=== PATIENT | male | born 1955 | race Caucasian/White ===

== ENCOUNTER → 2016-06-25 | Outpatient (CLI) | payer MEDICARE, OTHER ==
[2015-04-08 19:15] VITALS: BP 70/44
[~2016-06-25] MED LIST: ALBU2.5V14 NEB; ALPR1TAB6 PO; ARIP20TA5 PO; BACL10TA PO; DUONEB IH; IBUP200T58 PO; INSU100I17 SQ; INSU100I27 SQ; IPRA0.2S5 IH; LEVO500T59 PO; MORP20CA17 PO; MORP20CA18 PO; NYSTATIN; Nicotine TD; OXYC10TA PO; OXYC20TA34 PO; PRED-220 PO; PRED5TAB PO; SOFO400T PO; TAMS0.4C97 PO; TIOT18CA IH; TIOT4MIS5 IH; [UNRECOGNIZED DRUG - CODE] PO
--- NOTE | 2016-06-25 09:05 | RAD ---
Exam performed: Complete abdominal ultrasound. History: Hepatic cirrhosis hepatitis C. Date of service: 06/25/16. Comparison: Complete abdominal ultrasound from 09/08/14. Technique: Real-time grayscale imaging of the complete abdomen is performed and images are obtained. Findings: The liver demonstrates nodular contour consistent with previously known hepatic cirrhosis. It measures 18.9 cm in length. There is a 3.8 x 4.3 x 3.7 cm solid heterogeneously echogenic mass in the right hepatic lobe. There is also a 5 mm area of calcification in the left hepatic lobe. Splenomegaly. The spleen measures 13.1 cm in length. Punctate calcifications within the spleen are probably related to remote] infection. Bilateral kidneys are normal. Right kidney measures 11.6 x 5.8 x 5.7 cm left kidney measures 11.4 x 5.7 x 5.4 cm. Pancreas is poorly visualized due to overlying bowel gas. Segmental evaluation of the aorta and IVC appears normal. No free fluid. Impression: 1. Irregular hepatic contours consistent with hepatic cirrhosis. 2. New heterogeneously echogenic mass measuring 3.8 x 4.3 x 3.7 cm in the right hepatic lobe. Further evaluation with triple phase contrast-enhanced CT or MRI may be of additional benefit. 3. Mild splenomegaly
== END | disposition home or self-care (01) ==
LOC: US 07:56
PROVIDERS: ATTEND Internal Medicine Gastroenterology
DX: K74.60 Unspecified cirrhosis of liver (principal); B19.20 Unspecified viral hepatitis C without hepatic coma; R74.8 Abnormal levels of other serum enzymes; R16.1 Splenomegaly, not elsewhere classified
CPT/HCPCS: 76700

== ENCOUNTER → 2016-12-31 | Outpatient (CLI) | payer MEDICARE, OTHER ==
[2015-04-08 19:15] VITALS: BP 70/44
== END | disposition home or self-care (01) ==
LOC: SURG 11:27
PROVIDERS: ATTEND Anesthesiology
DX: M54.5 Low back pain (principal); C22.9 Malignant neoplasm of liver, not specified as primary or secondary; B19.20 Unspecified viral hepatitis C without hepatic coma; J44.9 Chronic obstructive pulmonary disease, unspecified; F20.9 Schizophrenia, unspecified; E11.9 Type 2 diabetes mellitus without complications; F17.200 Nicotine dependence, unspecified, uncomplicated
CPT/HCPCS: 99204

== ENCOUNTER 2017-09-01 16:53 | Inpatient (IN) | payer MEDICARE, OTHER ==
[~2017-09-01] VITALS: Ht 167.6 cm; Wt 69.0 kg
[2017-09-01] MEDS ORDERED: DEXTROSE 50% 25 GM / 50ML DISP.SYRIN. IV PRN (17:45)
[2017-09-01 17:50] VITALS: BP 113/74
[2017-09-01] MEDS ORDERED: RIFA550T4 PO (18:45)
[2017-09-01] MEDS ORDERED: SORA200T PO (18:45)
--- NOTE | 2017-09-01 19:09 | RAD ---
Indication: TIA/CVA TECHNIQUE: CT head without IV contrast COMPARISON: None FINDINGS: No pathologic extra-axial or intra-axial fluid collection. The ventricles and basal cisterns are within normal limits. No acute intracranial bleed. No focal loss of chen-white differentiation. Visualized orbits within normal limits. No acute calvarial fractures. Visualized paranasal sinuses and mastoid air cells are clear. IMPRESSION: No acute intracranial process. If concern for acute ischemic stroke is high, please consider MRI brain. Electronically signed by: Nash Olmos DO (09/01/2017 7:05 PM) [facility]
[2017-09-01 19:24] VITALS: BP 120/80
[2017-09-01] MEDS: IPRATRPIUM/ALBUTEROL 0.5/2.5MG 3 ML NEBU. NEB SCH (20:51)
[2017-09-01 21:01] LABS: BASO # 0.1 x10^3/uL (0.0-0.2); BASO % 1 % (0-3); EOS # 0.1 x10^3/uL (0.0-0.7); EOS % 2 % (0-3); HEMATOCRIT 46.2 % (39.0-53.0); HEMOGLOBIN 15.5 g/dL (13.0-17.5); LYMPH # 0.7 x10^3/uL (1.0-4.8); LYMPH % 16 % (24-48); MEAN CORPUSCULAR HEMOGLOBIN 31 pg (25-35); MEAN CORPUSCULAR HGB CONC 34 g/dL (31-37); MEAN CORPUSCULAR VOLUME 92 fL (79-100); MONO # 0.5 x10^3/uL (0.0-1.1); MONO % 11 % (0-9); NEUT # 3.1 x10^3uL (1.8-7.7); NEUT % 70 % (31-73); PLATELET COUNT 124 x10^3/uL (140-400); RED BLOOD COUNT 5.02 x10^6/uL (4.30-5.70); WHITE BLOOD COUNT 4.4 x10^3/uL (4.0-11.0)
--- NOTE | 2017-09-01 21:10 | EKG ---
[address] [address] Test Date: 2017-09-01 Test Time: 21:06:05 Pat Name: SHENA BARBOSA Department: Room: 107 A Gender: M Knowledge Manager: : 1955 Requested By: SARIKA GODOY Order Number: [id number] Reading MD: Measurements Intervals [place] Rate: 85 P: -46 DE: 112 QRS: 62 QRSD: 92 T: 22 QT: 364 QTc: 439 Interpretive Statements SINUS RHYTHM ATRIAL PREMATURE COMPLEX(ES) LEFT ATRIAL ABNORMALITY ABNORMAL ECG RI6.01 Compared to ECG 04/08/2015 18:04:04 Sinus tachycardia no longer present Right-axis deviation no longer present Right ventricular hypertrophy no longer present Early repolarization no longer present ST (T wave) deviation no longer present
[2017-09-01 21:22] LABS: ALBUMIN 2.1 g/dL (3.4-5.0); ALBUMIN/GLOBULIN RATIO 0.4 (1.0-1.7); CALCIUM 8.3 mg/dL (8.5-10.1); CREATININE 0.7 mg/dL (0.7-1.3); GFR 114.3; POTASSIUM 3.7 mmol/L (3.5-5.1)
[2017-09-01] MEDS: LACTOBACILLUS RHAMNOSUS GG 1 CAPSULE. PO SCH (21:47)
[2017-09-01] MEDS ORDERED: ALPRAZolam 0.5 MG TABLET PO PRN (22:30)
[2017-09-01 23:02] VITALS: BP 108/74
[2017-09-02] MEDS: IPRATRPIUM/ALBUTEROL 0.5/2.5MG 3 ML NEBU. NEB SCH ×5 (01:00→20:31)
[2017-09-02] MEDS: oxyCODONE IR 5 MG TABLET PO PRN ×5 (01:01→22:15)
[2017-09-02 01:04] VITALS: BP 113/77
[2017-09-02 02:02] LABS: BACTERIA,URINE 0 /HPF (0-FEW); BILIRUBIN,URINE NEG (NEG); CLARITY,URINE CLEAR; COLOR,URINE YELLOW; GLUCOSE,URINE NEG (NEG); NITRITE,URINE NEG (NEG); RBC,URINE 0 /HPF (0-2); UROBILINOGEN,URINE 0.2 mg/dL (0.2 mg/dL); WBC,URINE RARE /HPF (0-4)
[2017-09-02 05:04] VITALS: BP 110/69
[2017-09-02 06:19] LABS: BASO # 0.1 x10^3/uL (0.0-0.2); BASO % 1 % (0-3); EOS # 0.1 x10^3/uL (0.0-0.7); EOS % 1 % (0-3); HEMATOCRIT 47.2 % (39.0-53.0); HEMOGLOBIN 16.1 g/dL (13.0-17.5); LYMPH # 0.7 x10^3/uL (1.0-4.8); LYMPH % 15 % (24-48); MEAN CORPUSCULAR HEMOGLOBIN 32 pg (25-35); MEAN CORPUSCULAR HGB CONC 34 g/dL (31-37); MEAN CORPUSCULAR VOLUME 92 fL (79-100); MONO # 0.5 x10^3/uL (0.0-1.1); MONO % 11 % (0-9); NEUT # 3.4 x10^3uL (1.8-7.7); NEUT % 72 % (31-73); PLATELET COUNT 138 x10^3/uL (140-400); RED BLOOD COUNT 5.12 x10^6/uL (4.30-5.70); RED CELL DISTRIBUTION WIDTH 16.3 % (11.5-14.5); WHITE BLOOD COUNT 4.7 x10^3/uL (4.0-11.0)
[2017-09-02 06:29] LABS: CALCIUM 8.6 mg/dL (8.5-10.1); CREATININE 0.8 mg/dL (0.7-1.3); POTASSIUM 3.8 mmol/L (3.5-5.1)
[2017-09-02] MEDS: INSULIN LISPRO 300 UNITS/3 ML INSULN.PEN. SQ SCH ×3 (08:00→18:03)
--- NOTE | 2017-09-02 08:06 | RAD ---
INDICATION: Cough and congestion. TECHNIQUE: Two-view chest radiograph was obtained. Comparison is from April 08, 2015. FINDINGS: There is interstitial prominence with a basilar predominance, likely chronic, similar to the 2016 examination. There is no pleural effusion. There is no definite superimposed acute airspace disease. There is no pleural effusion. The heart is not enlarged and there is no definite heart failure. There are clips in the right upper quadrant. There are minimal degenerative changes in the spine. IMPRESSION: Interstitial prominence, likely chronic. No superimposed acute airspace disease is apparent. Electronically signed by: Geoff Pack MD (09/02/2017 8:03 AM) [facility]
[2017-09-02] MEDS: rifAXIMin 550 MG TABLET PO SCH ×2 (08:56→20:51)
[2017-09-02] MEDS: methylPREDNISolone SOD SUCC PF 125 MG/2 ML VIAL. IV SCH (08:56)
[2017-09-02] MEDS: ARIPiprazole 10 MG TABLET PO SCH (08:56)
[2017-09-02] MEDS: LACTOBACILLUS RHAMNOSUS GG 1 CAPSULE. PO SCH (08:56)
[2017-09-02] MEDS ORDERED: DUONEB IH SCH (09:00)
[2017-09-02] MEDS ORDERED: IOHEXOL 300 MG/ML 75 ML VIAL. IV ONE (09:45)
[2017-09-02 10:01] VITALS: BP 111/74
--- NOTE | 2017-09-02 11:11 | CONS ---
DATE OF CONSULTATION: 09/01/2017 NEUROLOGIC CONSULTATION REFERRING PHYSICIAN: Manish Page MD REASON FOR CONSULTATION: Weakness of the left arm and hand. HISTORY OF PRESENT ILLNESS: This is a 61-year-old right-handed male who was admitted today on account of a sudden onset of weakness and numbness of the left upper extremity. The patient stated he has been doing fine until this morning when he woke up and he could not extend his left wrist and fingers. He also complains of intermittent numbness and paresthesia of both upper extremities, more prominent on the right side. The patient denies any recent fall or neck injuries. He complains of neck pain radiating to the right shoulder plate. The patient has had a long history of liver cancer diagnosed a year ago. He has been treated at [facility] and has been on Nexavar and other chemotherapies. He has had a procedure of embolization to the liver vascular. The patient stated he had metastasize of the liver cancer to the cervical spine, mainly vertebral body 6 and 7, for which he received radiation 2 months ago. He continues to complain of pain of the cervical spine. The patient denies headaches, visual disturbances, nausea, vomiting, chest pain, abdominal pain, bowel movement changes. He has had a history of pulmonary hypertension, COPD associated with shortness of breath requiring oxygen supplements. 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 SOCIAL HISTORY: The patient is . He is a smoker. He denies alcohol drinking or illicit drug use. CURRENT MEDICATIONS: Includes Nexavar 200 mg p.o. daily, Abilify 20 mg daily, rifaximin 550 mg b.i.d., Humalog insulin on sliding scales t.i.d., oxycodone 10 mg q. 6 hours p.r.n. for pain, Xanax 0.5 mg b.i.d. p.r.n. for anxiety, Albuterol inhaler and nebulizer p.r.n. ALLERGIES: HALOPERIDOL. REVIEW OF SYSTEMS: A 10-point review of system was performed as mentioned above in history of present illness. PHYSICAL EXAMINATION: GENERAL: Well-developed, well-nourished male, not in acute distress. He weighs 152 pounds. VITAL SIGNS: Blood pressure 113/77, respiratory rate 20, pulse is 83, temperature is 97.9, oxygen saturation is 94% on 4 liters by nasal cannula. HEENT: Normocephalic, atraumatic, otherwise unremarkable. NECK: Supple. Negative for carotid bruit, lymphadenopathy. or thyromegaly. LUNGS: Diminished breath sounds. No wheezing. CARDIOVASCULAR: Regular rhythm, normal S1, S2, and sometimes with extra beats. ABDOMEN: Soft. Bowel sounds positive. EXTREMITIES: Negative for cyanosis, clubbing, or pitting edema. NEUROLOGIC: Mental status: The patient is alert and oriented x 3. Speech is fluent. There is no language dysfunction. Memory, judgment, and abstract thinking are normal. The patient denies hallucination or delusion. CRANIAL NERVES: Visual fermin are full. The pupils are reactive to light and accommodation. The extraocular movements are intact. There is no nystagmus. There is no facial motor or sensory deficit. Hearing is intact bilaterally. The palate is elevated symmetrically. Sternocleidomastoid muscles are powerful bilaterally. The patient shrugs his shoulders symmetrically, protrudes his tongue in the midline without fasciculation or atrophy. Motor examination: No focal muscle bulk was seen. The tone is normal. The strength is 4/5 in the left wrist extensor muscles and left forearm extensors. on the right side. The strength was 5/5 throughout. Sensory examination revealed normal pinprick, light touch, vibratory and position senses. Deep tendon reflexes were symmetric and hypoactive with absent Achilles responses. Gait: The patient has a steady stance. The patient walks without assistance. IMPRESSION: 1. Acute onset of left wrist drop probably secondary to left radial entrapment neuropathy versus lower cervical radiculopathy. Left brachial plexopathy is a remote possibility. 2. History of liver cancer with bone metastasis to the cervical spine. 3. Multiple medical problems include diabetes mellitus, chronic obstructive pulmonary disease, recent pneumonia, angina, renal disease and chronic low back pain. 4. Multiple psychiatric problems include schizophrenia, depressions, and anxiety. RECOMMENDATIONS: 1. Conservative management with physical therapy and apply a woody board to the left wrist. 2. Start the patient on steroids, Solu-Medrol. 3. We will arrange for EMG/NCS of the upper extremities to rule out entrapment neuropathy versus cervical radiculopathy, underlying metastasis to the cervical spine should be ruled out. 4. The patient should avoid leaning the left elbow against the hard surfaces. 5. Continue with current management initiated by Dr. Page. M Mariann TEJADA MD DR: MEG/vishal JOB#: [id number] / [id number]
--- NOTE | 2017-09-02 12:04 | RAD ---
Indication: Upper extremity radiculopathy. Pain and numbness in fingers. No known injury. Right shoulder pain. Technique: Axial images and coronal and sagittal reformatted images are provided. No comparison is available. One or more of the following individualized dose reduction techniques were utilized for this examination: 1. Automated exposure control 2. Adjustment of the mA and/or kV according to patient size 3. Use of iterative reconstruction technique Findings: There is an expansile mass involving the right pedicle, lateral mass, and transverse process of C7. This measures 3.4 cm transverse by 2.6 cm AP by 2.4 cm craniocaudal. It results in foraminal narrowing both at C6-C7 and C7-T1, moderate to severe at C6-C7 and mild at C7-T1. Additional osseous lesion is not apparent. There is no pathologic fracture. There is no fracture elsewhere within the cervical spine. There is slight retrolisthesis at C3-C4. There is otherwise no malalignment. There is mild endplate spurring most notable at C6-C7. Uncinate process spurring is also greatest at this level. Narrowing of the interspace is greatest at this level. Prevertebral soft tissues are within normal limits. Craniovertebral junction is unremarkable. There is severe emphysema in the lung apices. Rosa, nurse for Dr. Jacobs, was notified of results and recommendation of MRI at 1158 hours. IMPRESSION: 1. Expansile lytic mass involving the right pedicle, transverse process, and lateral mass of C7. Metastatic disease and myeloma would be the primary considerations. Recommend MRI with and without contrast. 2. Mass results in right foraminal narrowing at C6-C7 and C7-T1. 3. Mild degenerative changes are greatest at C6-C7. Electronically signed by: Geoff Pack MD (09/02/2017 12:00 PM) [facility]
[2017-09-02] MEDS: HEPARIN PF for SUB-Q USE 5,000 UNIT/0.5 ML VIAL. SQ SCH ×2 (13:16→20:52)
[2017-09-02] MEDS: NEXAVAR 200 MG PO SCH (13:57)
[2017-09-02 14:30] VITALS: BP 119/74
--- NOTE | 2017-09-02 15:28 | RAD ---
Indication: Recent pneumonia. Difficulty breathing. COPD. Lifetime smoker. On home O2. Technique: Axial images and coronal and sagittal maximum intensity projection reformatted images are provided. 75 mL of intravenous Omnipaque 300 was administered without complication. Comparison is from August 01, 2015. One or more of the following individualized dose reduction techniques were utilized for this examination: 1. Automated exposure control 2. Adjustment of the mA and/or kV according to patient size 3. Use of iterative reconstruction technique Findings: Cervical spine osseous mass was described on the CT cervical spine report. No osseous lesion in the chest is apparent. The contrast bolus is satisfactory. There is no filling defect to suggest pulmonary embolism. Right main pulmonary artery measures 2.8 cm in diameter. There is no aortic aneurysm or dissection, there is minimal atheromatous disease in the thoracic aorta. The heart is not enlarged. Coronary artery calcifications are noted. Calcified mediastinal lymph nodes are noted. There are also enlarged lymph nodes. There is a precarinal lymph node measuring 24 x 13 mm. Lymph node between the left common carotid artery and left subclavian artery measures 14 x 10 mm. AP window lymph node or grouping of nodes measures 2.5 x 1.0 cm. Enlarged right hilar lymph node measures 2.6 x 1.8 cm. Majority of these nodes are stable compared to 2016, the small node between the left common carotid artery and subclavian artery may be minimally increased, evaluation on prior study limited by streak artifact. Central airways are patent. There is no pleural effusion. There is severe emphysema with bullous upper lobe predominance. There is no consolidation. There again is a questionable nodule in the right upper lobe on image 24 measuring 6 mm, stable. Vague nodular area of scarring in the left lower lobe centered on image 77 is stable. There is granulomatous disease. There is fatty infiltration of the liver. There is a hepatic mass measuring 4.2 x 3.4 cm and the right hepatic lobe, not a simple cyst. This is probably increased in size from the June 25, 2016 ultrasound. Subcentimeter probable right renal cysts are noted. There is no adrenal mass. There are mild degenerative changes in the spine. IMPRESSION: 1. Negative for pulmonary embolus. Findings of pulmonary to real hypertension. 2. Severe emphysema. 3. Prominent mediastinal and right hilar lymph nodes, majority are stable, one of the smaller nodes may be increased. 4. Mass in the right hepatic lobe was present on a previous ultrasound, although is increased in size. Consider multiphase CT or MRI, if not previously performed. This was recommended on prior ultrasound as well. Electronically signed by: Geoff Pack MD (09/02/2017 3:24 PM) [facility]
[2017-09-02 18:57] VITALS: BP 150/84
--- NOTE | 2017-09-02 20:54 | PN ---
DATE: SUBJECTIVE: A 61-year-old gentleman came in very weak, tired. The patient notes that he may have some type of a tumor in his cervical spine, expansile lytic mass involving the right pedicle, transverse process and probable metastatic disease, possible myeloma. Dr. Maurer, neurologist, is helping this as well with the explanation of this. PHYSICAL EXAMINATION: VITAL SIGNS: Blood pressure 120/70, respiratory rate 20, pulse 80, afebrile. GENERAL: The patient is alert and oriented, still has pain down his left arm. NEUROLOGIC: The patient is alert and oriented x 3. Speech fluent, spontaneous, appropriate. LUNGS: Diminished, but clear. CARDIOVASCULAR: Stable. LABORATORY DATA: Basically unremarkable. IMPRESSION: Cervical tumor mass, history of polycythemia vera, generalized weakness. PLAN: As above. Continue to monitor the patient and we will review with Dr. Maurer, next step. Also looks like he has a tumor in his liver as well. Type 2 diabetes. SARIKA GODOY MD DR: JOCELIN/vishal JOB#: [id number] / [id number]
[2017-09-02 22:27] VITALS: BP 110/69
--- NOTE | 2017-09-02 23:46 | RAD ---
Indication:Elevated liver function tests TECHNIQUE: Grayscale, color Doppler and spectral waveform is of the abdomen obtained. COMPARISON:None FINDINGS: Visualized pancreas is within normal limits. No abdominal aortic aneurysm. IVC is patent. Main portal vein is patent with hepatopedal flow. CBD measures 7 mm and is within normal limits. Status post cholecystectomy. There is a 3.4 x 4.6 x 4.5 cm mixed echogenicity lesion in right hepatic lobe also seen on previous CT from 09/02/2017. Liver is mildly enlarged measuring 18 cm in longest dimension with coarse echotexture. Right kidney measures 11 cm in length without hydronephrosis. Left kidney measures 12 cm in length without hydronephrosis. Spleen is mildly enlarged measuring 15 cm in longest dimension. IMPRESSION: 1. Hepatic steatosis with mild hepatosplenomegaly. 2. Right hepatic lobe mass corresponding to mass seen on CT. Clinically correlate if there is history of treated HCC. Electronically signed by: Nash Olmos DO (09/02/2017 11:43 PM) [facility]
[2017-09-03] MEDS: oxyCODONE IR 5 MG TABLET PO PRN ×2 (03:38→07:49)
[2017-09-03 05:17] VITALS: BP 111/71
[2017-09-03] MEDS: IPRATRPIUM/ALBUTEROL 0.5/2.5MG 3 ML NEBU. NEB SCH ×2 (05:36→10:05)
[2017-09-03] MEDS: NEXAVAR 200 MG PO SCH (06:38)
--- NOTE | 2017-09-03 07:40 | PN ---
DATE: 09/02/2017 SUBJECTIVE: The patient continues to have weakness of the left upper extremities, mainly left wrist drop. He also complains of numbness and paresthesia of the upper extremities as well. The patient received a woody board to support his left wrist and started on steroid Solu-Medrol. He stated his weakness of the left hand is slightly better than yesterday. A CT scan of the cervical spine today revealed evidence of lytic mass involving the right pedicle, transverse process and lateral mass of C7 along with narrowing at C6-C7 and C7-T1, likely represent metastases. OBJECTIVE: GENERAL: Well-developed, well-nourished white male, not in acute distress. VITAL SIGNS: Blood pressure 110/69, respiratory rate 18, pulse 72, temperature 97.9, oxygen saturation is 87% on 4 liters by nasal cannula. HEENT: Normocephalic, atraumatic. NECK: Supple. Negative for carotid bruit, lymphadenopathy or thyromegaly. LUNGS: Are clear to A and P. CARDIOVASCULAR: Regular rate and rhythm, normal S1, S2. ABDOMEN: Soft, bowel sounds positive. EXTREMITIES: Are negative for cyanosis, clubbing, pitting edema. NEUROLOGICAL EXAMINATION: Mental status: The patient is alert and oriented x 3. Speech is fluent. There is no language dysfunction, otherwise unremarkable. Cranial nerves are grossly intact. Motor examination revealed moderate left wrist drop. The strength was 4/5 throughout. Sensory examination revealed normal pinprick and light touch senses throughout. Deep tendon reflexes were asymmetric and hypoactive with absent Achilles responses. Gait and coordinations are normal. DIAGNOSTIC DATA: Abdominal ultrasound revealed evidence of hepatic steatosis with right hepatic lobe mass consistent with history of liver cancer. A chest CT revealed no evidence of pulmonary embolism but showed evidence of pulmonary hypertension and prominent mediastinal and right hilar lymph nodes, which appeared to be stable compared to previous examination. IMPRESSION: 1. History of liver cancer with metastases to the cervical spine as described above. 2. Acute onset of left wrist drop, consider entrapment neuropathy of the left radial nerve at the elbow versus C6-C7 radiculopathy secondary to a lytic mass to the spine. 3. Multiple medical and psychiatric problems include diabetes mellitus, chronic obstructive pulmonary disease, recent pneumonia, chronic lower back pain, depressions and anxiety. RECOMMENDATION: 1. Continue with current management. 2. We will arrange for EMG/NCS of the upper extremities. 3. Follow up with [facility]. The patient has completed radiation therapy to the cervical spine metastases. M Mariann TEJADA MD DR: MEG/vishal JOB#: [id number] / [id number]
[2017-09-03] MEDS: rifAXIMin 550 MG TABLET PO SCH (07:49)
[2017-09-03] MEDS: methylPREDNISolone SOD SUCC PF 125 MG/2 ML VIAL. IV SCH (07:49)
[2017-09-03] MEDS: ARIPiprazole 10 MG TABLET PO SCH (07:49)
[2017-09-03] MEDS: INSULIN LISPRO 300 UNITS/3 ML INSULN.PEN. SQ SCH (07:49)
[2017-09-03] MEDS: HEPARIN PF for SUB-Q USE 5,000 UNIT/0.5 ML VIAL. SQ SCH (07:57)
--- NOTE | 2017-09-03 10:03 | PN ---
DATE: 09/03/2017 SUBJECTIVE: The patient denies any new medical or neurological complaints. He continues to have numbness and paresthesia of the upper extremities along with weakness of the left wrist. He also complains of chronic lower back pain radiating into the lower extremities. He denies headaches, visual disturbances, chest pain, but he continues to have shortness of breath based on COPD and recent pneumonia. Cervical spine MRI performed yesterday revealed evidence of lytic lesions consistent with metastasis to the cervical spine at C6-C7 along with degenerative disk disease. OBJECTIVE: GENERAL: Well-developed, well-nourished male, not in acute distress. VITAL SIGNS: Blood pressure 111/71, respiratory rate 18, pulse is 76, temperature is 97.5, oxygen saturation 91% on 4 liters by nasal cannula. HEENT: Normocephalic, atraumatic, otherwise unremarkable. NECK: Supple. Negative for carotid bruit, lymphadenopathy or thyromegaly. LUNGS: Diminished breath sounds throughout. CARDIOVASCULAR: Regular rate and rhythm. Normal S1, S2 normal and no S3, S4 or murmur. ABDOMEN: Soft. Bowel sounds positive. EXTREMITIES: Negative for cyanosis, clubbing, pitting edema. NEUROLOGICAL: The patient is alert and oriented x 3. Speech is fluent. There is no language dysfunction, otherwise unremarkable. Cranial nerves are intact. Motor examination reveals weakness of the distal upper extremities. Regarding the weakness of the extensor muscles in the left forearm and hands has somewhat improved, but he continues to have a left hand small muscle weakness including abductors. Sensory examination revealed normal pinprick and light touch senses. Deep tendon reflexes were symmetric and hypoactive with absent Achilles responses. Gait and coordination are normal. IMPRESSION: 1. C6-C7 radiculopathy, more prominent on the left side, may have contributed to the weakness of the left hand involving radial nerve innervated muscles with moderate improvement with recent steroid treatment. 2. History of hepatic carcinoma with metastasis to the cervical spine causing lytic lesions. 3. Multiple medical and psychiatric care as mentioned previously. RECOMMENDATIONS: 1. Continue with current management initiated by Dr. Page for a recent pneumonia. 2. The patient will be followed up at [facility] next week. Multiple myeloma should also rule out. 3. We will follow along with EMG/NCS of the upper extremities on an outpatient basis. M Mariann TEJADA MD DR: Jose Antonio JOB#: [id number] / [id number]
[2017-09-03 10:44] VITALS: BP 122/75
--- NOTE | 2017-09-03 11:33 | DS ---
DATE OF DISCHARGE: 09/03/2017 HOSPITAL COURSE: The patient is a 61-year-old male who came in and was having problems with extremely weak, tired. 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 As a result of this, the patient was admitted to the hospital for further evaluation and treatment. The patient was brought in and evaluated. His cardiac enzymes were negative. The patient apparently was having more problems with his situation. He has a tumor, metastatic cancer from his liver cancer to his cervical spine and that in turn is no doubt causing the weakness down the left arm and pain down the left arm for that matter. He continues to go down to Oncology at . He was seen also by Dr. Maurer here. The patient had an abdominal ultrasound which revealed evidence of a hepatic steatosis as well as a hepatic lobe mass consistent with history of liver cancer. The patient also had a CT of the neck and this demonstrated he had acute onset of left wrist drop consistent with entrapment neuropathy of the left radial nerve at the elbow versus C6-C7 radiculopathy secondary to a lytic mass of the spine. The patient also of course was noted to have that CT scan of the cervical spine, which in turn demonstrated an expansile lytic mass involving the right pedicle transverse process and lateral mass of C7 metastatic disease with myeloma, would be the primary consideration, they wanted to get an MRI, but apparently is going down to for Oncology consultations. In any case, the patient continued to be monitored carefully, make further evaluation. He will be discharged to the home and then Oncology at . The patient's labs demonstrated IMPRESSION: Therefore, lytic lesion, metastatic cancer to the cervical spine from primary of liver cancer, type 2 diabetes, moderate to severe protein malnutrition, elevated liver enzymes, no doubt from the cancer in the liver. The patient also was noted to have a CTA that demonstrated no pulmonary emboli, but severe emphysema. DISCHARGE INSTRUCTIONS: The patient continued to be monitored as an outpatient will be on a regular diet. Decreased activity and return to clinic for followup sooner as needed. SARIKA GODOY MD DR: JOCELIN/vishal JOB#: [id number] / [id number]
== END 2017-09-03 11:10 | disposition home or self-care (01) | DRG 840 ==
LOC: 1 SOUTH 17:34
PROVIDERS: ADMIT Family Medicine; ATTEND Family Medicine
DX: C90.00 Multiple myeloma not having achieved remission (principal); E43 Unspecified severe protein-calorie malnutrition; C22.9 Malignant neoplasm of liver, not specified as primary or secondary; C79.51 Secondary malignant neoplasm of bone; M54.12 Radiculopathy, cervical region; M21.332 Wrist drop, left wrist; E11.22 Type 2 diabetes mellitus with diabetic chronic kidney disease; F17.200 Nicotine dependence, unspecified, uncomplicated; F20.9 Schizophrenia, unspecified; F41.9 Anxiety disorder, unspecified; G89.29 Other chronic pain; I27.20 Pulmonary hypertension, unspecified; J43.9 Emphysema, unspecified; K74.60 Unspecified cirrhosis of liver; M54.5 Low back pain; K76.0 Fatty (change of) liver, not elsewhere classified; N18.2 Chronic kidney disease, stage 2 (mild); Z87.01 Personal history of pneumonia (recurrent); Z92.3 Personal history of irradiation; Z82.3 Family history of stroke; Z79.899 Other long term (current) drug therapy; Z79.84 Long term (current) use of oral hypoglycemic drugs; Z88.8 Allergy status to other drugs, medicaments and biological substances; Z68.24 Body mass index [BMI] 24.0-24.9, adult
CPT/HCPCS: 36415; 70450; 71046; 71275; 72125; 76700; 80048; 80053; 81001; 82553; 82947; 83605; 83880; 84484; 85025; 85379; 87040; 87070; 87205; 93005; 94640; 94760; 99406; J1815; J1956; J2930; J7620; Q9967; 97110; 97535

== ENCOUNTER 2017-11-07 15:28 | Inpatient (IN) | payer MEDICARE, OTHER ==
[~2017-11-07] VITALS: Ht 167.6 cm; Wt 76.7 kg
[~2017-11-07 15:28] MED LIST changes: +RIFA550T4 PO; +SORA200T PO
[2017-11-07 16:47] VITALS: BP 136/75
[2017-11-07] MEDS ORDERED: MULT1TAB52 PO (17:01)
[2017-11-07] MEDS ORDERED: ARFO15VI NEB (17:01)
[2017-11-07] MEDS ORDERED: ALPRAZOLAM 0.5 MG PO PRN (18:15)
[2017-11-07] MEDS ORDERED: ALBUTEROL SULFATE 2.5 MG/3 ML NEBU. NEB PRN (18:30)
[2017-11-07 18:45] LABS: BASO # 0.1 x10^3/uL (0.0-0.2); BASO % 1 % (0-3); EOS # 0.1 x10^3/uL (0.0-0.7); EOS % 1 % (0-3); HEMATOCRIT 38.8 % (39.0-53.0); HEMOGLOBIN 13.3 g/dL (13.0-17.5); LYMPH # 0.8 x10^3/uL (1.0-4.8); LYMPH % 8 % (24-48); MEAN CORPUSCULAR HEMOGLOBIN 32 pg (25-35); MEAN CORPUSCULAR HGB CONC 34 g/dL (31-37); MEAN CORPUSCULAR VOLUME 95 fL (79-100); MONO % 10 % (0-9); NEUT # 8.1 x10^3uL (1.8-7.7); NEUT % 80 % (31-73); PLATELET COUNT 89 x10^3/uL (140-400); RED CELL DISTRIBUTION WIDTH 18.7 % (11.5-14.5); WHITE BLOOD COUNT 10.1 x10^3/uL (4.0-11.0)
[2017-11-07] MEDS ORDERED: DEXTROSE 50% 25 GM / 50ML DISP.SYRIN. IV PRN (18:45)
[2017-11-07 18:48] LABS: ALBUMIN 1.8 g/dL (3.4-5.0); ALBUMIN/GLOBULIN RATIO 0.4 (1.0-1.7); CALCIUM 7.7 mg/dL (8.5-10.1); CREATININE 0.6 mg/dL (0.7-1.3); GFR 136.5; POTASSIUM 4.1 mmol/L (3.5-5.1); TOTAL PROTEIN 6.2 g/dL (6.4-8.2)
[2017-11-07 19:00] VITALS: BP 109/72
[2017-11-07] MEDS: oxyCODONE IR 5 MG TABLET PO PRN (19:08)
[2017-11-07] MEDS: ALPRAZolam 0.5 MG TABLET PO PRN (19:08)
[2017-11-07] MEDS: ARIPiprazole 10 MG TABLET PO SCH (20:29)
[2017-11-07] MEDS ORDERED: DUONEB IH SCH (21:00)
[2017-11-07] MEDS ORDERED: NON FORMULARY ITEM (Arformoterol Tartrate (Brovana) 1 VIAL) NEB SCH (21:00)
[2017-11-07] MEDS ORDERED: NON FORMULARY ITEM (Insulin Aspart (Novolog Flexpen) 0 UNITS) SQ SCH (21:00)
[2017-11-07] MEDS: rifAXIMin 550 MG TABLET PO SCH (21:02)
[2017-11-07] MEDS: IPRATRPIUM/ALBUTEROL 0.5/2.5MG 3 ML NEBU. NEB SCH (21:31)
--- NOTE | 2017-11-07 21:32 | EKG ---
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
[2017-11-07 23:00] VITALS: BP 106/70
[2017-11-08] MEDS: oxyCODONE IR 5 MG TABLET PO PRN ×3 (02:35→22:11)
[2017-11-08 03:32] LABS: BILIRUBIN,URINE NEG (NEG); CLARITY,URINE HAZY; COLOR,URINE AMBER; GLUCOSE,URINE NEG (NEG)
[2017-11-08 03:33] LABS: BACTERIA,URINE FEW /HPF (0-FEW); NITRITE,URINE POS (NEG); RBC,URINE OCC /HPF (0-2); SQUAMOUS EPITHELIAL CELL,UR OCC /LPF; UROBILINOGEN,URINE 0.2 mg/dL (0.2 mg/dL); WBC,URINE 0 /HPF (0-4)
[2017-11-08 05:00] VITALS: BP 100/68
[2017-11-08] MEDS: IPRATRPIUM/ALBUTEROL 0.5/2.5MG 3 ML NEBU. NEB SCH ×3 (05:19→21:13)
[2017-11-08 06:17] LABS: CREATININE 0.6 mg/dL (0.7-1.3); GFR 136.5; POTASSIUM 4.4 mmol/L (3.5-5.1)
[2017-11-08 06:21] LABS: BASO # 0.1 x10^3/uL (0.0-0.2); BASO % 1 % (0-3); EOS # 0.1 x10^3/uL (0.0-0.7); EOS % 1 % (0-3); HEMOGLOBIN 13.5 g/dL (13.0-17.5); LYMPH # 0.8 x10^3/uL (1.0-4.8); LYMPH % 9 % (24-48); MEAN CORPUSCULAR HEMOGLOBIN 33 pg (25-35); MEAN CORPUSCULAR HGB CONC 35 g/dL (31-37); MEAN CORPUSCULAR VOLUME 95 fL (79-100); MONO # 0.8 x10^3/uL (0.0-1.1); MONO % 9 % (0-9); NEUT # 7.1 x10^3uL (1.8-7.7); NEUT % 80 % (31-73); PLATELET COUNT 75 x10^3/uL (140-400); RED BLOOD COUNT 4.12 x10^6/uL (4.30-5.70); RED CELL DISTRIBUTION WIDTH 18.1 % (11.5-14.5); WHITE BLOOD COUNT 8.8 x10^3/uL (4.0-11.0)
[2017-11-08 07:38] LABS: PLT ESTIMATE DECREASED (ADEQUATE); POLYCHROMASIA SLIGHT
[2017-11-08 07:39] LABS: ANISOCYTOSIS SLIGHT; TOXIC GRANULATION SLIGHT
[2017-11-08] MEDS: INSULIN LISPRO 300 UNITS/3 ML INSULN.PEN. SQ SCH ×3 (08:00→17:17)
[2017-11-08] MEDS: FUROSEMIDE 40 MG/4 ML VIAL IVP SCH (08:50)
[2017-11-08] MEDS: MULTIVITAMIN with MINERAL TABLET. PO SCH (08:50)
[2017-11-08] MEDS: rifAXIMin 550 MG TABLET PO SCH ×2 (08:50→22:01)
[2017-11-08] MEDS: APIXABAN 2.5 MG TABLET PO SCH ×2 (08:50→22:01)
--- NOTE | 2017-11-08 09:51 | RAD ---
EXAM: CHEST PA LATERAL DATE: 11/07/2017 6:53 PM INDICATION: shortness of breath, hx copd,emphysema and liver CA COMPARISON: 09/01/2017, 04/08/2015 FINDINGS/ IMPRESSION: The heart is not enlarged. Mediastinal and hilar contours are normal. Bilateral interstitial and emphysematous changes are seen. No definite superimposed consolidation. No pleural effusion or pneumothorax. Electronically signed by: Michael Muñoz MD (11/08/2017 9:48 AM) [facility]
[2017-11-08 11:09] VITALS: BP 105/72
--- NOTE | 2017-11-08 12:54 | PN ---
DATE: SUBJECTIVE: The patient with congestive heart failure. He says he felt a little better this morning, although he is still having marked swelling to his legs. He also has an elevated ammonia level and alike. OBJECTIVE: VITAL SIGNS: Blood pressure 100/70, respiratory rate 20, pulse 90 and afebrile. He is still on 5 L, just hovering above 92%. GENERAL: The patient is alert. LUNGS: Diminished primarily in the bases with a few scattered rhonchi. CARDIOVASCULAR: Regular sinus rhythm, S1, S2, positive S3. ABDOMEN: Soft, nontender. EXTREMITIES: No clubbing, cyanosis. There is +3 pitting edema. LABORATORY DATA: Show hemoglobin steady. His sodium is 127. His blood sugars are in the 130s. His ammonia level is still elevated slightly at 164. The patient's kidney function is good. Albumin severely low at 1.8. He also has thrombocytopenia. In any case, he had positive nitrites, hopefully they are doing a culture on that. IMPRESSION: Acute on top of chronic diastolic heart failure, liver cancer, liver failure, thrombocytopenia, severe protein malnutrition, hyponatremia, hypocalcemia, elevated liver enzymes, hepatitis C, positive D-dimer. We will do an angiogram on his lung see if there are any clots in there. SARIKA GODOY MD DR: JOCELIN/vishal JOB#: [id number] / [id number]
[2017-11-08] MEDS ORDERED: IOHEXOL 300 MG/ML 75 ML VIAL. IV ONE (14:15)
[2017-11-08 15:00] VITALS: BP 113/68
--- NOTE | 2017-11-08 16:06 | RAD ---
Chest CTA History: Shortness of breath, positive d-dimer Technique: After bolus of intravenous contrast, CT imaging was performed of the chest. Multiplanar reconstruction images to include MIP reconstruction images are submitted. Exposure: One or more of the following individualized dose reduction techniques were utilized for this examination: 1. Automated exposure control 2. Adjustment of the mA and/or kV according to patient size 3. Use of iterative reconstruction technique. Contrast: 75 cc Omnipaque 300 Comparison: September 02, 2017 Findings: [ ] There is fairly severe motion and also suboptimal contrast opacification of pulmonary arteries. No obvious embolism is identified of the main pulmonary arteries although otherwise cannot accurately evaluate for pulmonary embolic disease on this exam. There is again emphysema as well as septal thickening and honeycombing bilaterally. There is no significant pleural fluid or pneumothorax. There is increased groundglass density of the lung parenchyma, also poorly evaluated due to motion. There are again findings of cirrhosis, now at least mild free fluid of the visualized abdomen, somewhat nodular appearance. There is also hypodense liver lesion as seen previously estimated about 4.4 cm transverse fairly similar although suggestion of a large area of ill-defined low density more laterally about 2.5 cm axial image 84. There is now somewhat nodular appearing lesion of the left lower lobe of the lung axial image 59 about 1.7 cm. Major airways are patent. Precarinal node about 1.3 cm short axis dimension is similar. There is again right hilar node about 1.5 cm short axis dimension. There is again mass of the right C7 pedicle and transverse process and lateral mass. Impression: 1. Exam is degraded by severe motion and suboptimal contrast opacification of pulmonary arteries, no obvious embolism in the main pulmonary arteries although otherwise cannot accurately evaluate for pulmonary embolic disease on this exam. 2. There is again emphysema as well as honeycombing and septal thickening, increased groundglass density of the lung parenchyma which may be due to edema. There is new nodular appearing lesion of the left lower lobe, possible lung mass. 3. There is again mass of the right C7 pedicle with involvement of the right lateral mass and transverse process. 4. There is also again right liver mass although suggestion of more prominent lesion more laterally. There is new at least mild free fluid of the abdomen, nonspecific somewhat nodular appearance. There are again findings of cirrhosis. Electronically signed by: Norm Nielsen MD (11/08/2017 4:03 PM) [facility] [place]
[2017-11-08 19:00] VITALS: BP 102/68
[2017-11-08] MEDS: ARIPiprazole 10 MG TABLET PO SCH (22:01)
[2017-11-08 23:00] VITALS: BP 123/80
[2017-11-08] MEDS: ALPRAZolam 0.5 MG TABLET PO PRN (23:31)
[2017-11-09] MEDS: IPRATRPIUM/ALBUTEROL 0.5/2.5MG 3 ML NEBU. NEB SCH ×3 (05:37→20:02)
[2017-11-09 07:18] LABS: BASO # 0.1 x10^3/uL (0.0-0.2); BASO % 1 % (0-3); EOS # 0.1 x10^3/uL (0.0-0.7); EOS % 1 % (0-3); LYMPH # 0.8 x10^3/uL (1.0-4.8); LYMPH % 9 % (24-48); MEAN CORPUSCULAR HEMOGLOBIN 32 pg (25-35); MEAN CORPUSCULAR HGB CONC 34 g/dL (31-37); MEAN CORPUSCULAR VOLUME 94 fL (79-100); MONO % 11 % (0-9); NEUT # 7.1 x10^3uL (1.8-7.7); NEUT % 78 % (31-73); PLATELET COUNT 82 x10^3/uL (140-400); RED BLOOD COUNT 4.03 x10^6/uL (4.30-5.70); RED CELL DISTRIBUTION WIDTH 18.4 % (11.5-14.5); WHITE BLOOD COUNT 9.1 x10^3/uL (4.0-11.0)
[2017-11-09 07:31] LABS: CALCIUM 7.7 mg/dL (8.5-10.1); CREATININE 0.6 mg/dL (0.7-1.3); GFR 136.5; POTASSIUM 3.9 mmol/L (3.5-5.1)
[2017-11-09] MEDS: INSULIN LISPRO 300 UNITS/3 ML INSULN.PEN. SQ SCH ×3 (08:00→17:49)
[2017-11-09] MEDS: FUROSEMIDE 40 MG/4 ML VIAL IVP SCH ×2 (09:47→21:31)
[2017-11-09] MEDS: oxyCODONE IR 5 MG TABLET PO PRN ×3 (09:48→22:42)
[2017-11-09] MEDS: MULTIVITAMIN with MINERAL TABLET. PO SCH (09:49)
[2017-11-09] MEDS: ALPRAZolam 0.5 MG TABLET PO PRN ×2 (09:49→22:40)
[2017-11-09] MEDS: rifAXIMin 550 MG TABLET PO SCH ×2 (09:49→21:29)
[2017-11-09] MEDS: APIXABAN 2.5 MG TABLET PO SCH ×2 (09:49→21:29)
[2017-11-09 11:07] VITALS: BP 107/74
[2017-11-09 14:54] VITALS: BP 100/66
[2017-11-09] MEDS ORDERED: PROCHLORPERAZINE 10 MG/2 ML VIAL. IV PRN (16:30)
[2017-11-09] MEDS ORDERED: ALBUMIN HUMAN 5% 250 ML IV ONE (16:45)
--- NOTE | 2017-11-09 18:15 | PN ---
DATE: SUBJECTIVE: A 61-year-old male in with acute on top of chronic congestive heart failure, liver cancer with mets. He is doing some better. He is diuresing fairly good, but we will increase his Lasix a little bit more to help him diurese. OBJECTIVE: VITAL SIGNS: Blood pressure down to 100/66, respiratory rate 20, pulse 110 and afebrile. The patient is still on 5 L at 94%. GENERAL: The patient is alert and oriented. LUNGS: Diminished, some rales noted in the right lower lung base. CARDIOVASCULAR: Regular sinus rhythm, tachycardic. ABDOMEN: Soft. EXTREMITIES: No clubbing, cyanosis, +3 edema. We will increase his Lasix and make further evaluation on him as indicated with that in mind. IMPRESSION: Acute on top of chronic congestive heart failure, severe protein malnutrition, elevated liver enzymes, history of liver cancer, hepatitis C, elevated ammonia levels. SARIKA GODOY MD DR: JOCELIN/vishal JOB#: [id number] / [id number]
[2017-11-09 19:00] VITALS: BP 98/64
[2017-11-09] MEDS: ARIPiprazole 10 MG TABLET PO SCH (21:29)
[2017-11-09 23:45] VITALS: BP 93/57
[2017-11-10] MEDS: IPRATRPIUM/ALBUTEROL 0.5/2.5MG 3 ML NEBU. NEB SCH ×4 (05:26→20:39)
[2017-11-10 05:49] VITALS: BP 99/63
[2017-11-10 06:27] LABS: BASO # 0.1 x10^3/uL (0.0-0.2); BASO % 1 % (0-3); EOS # 0.1 x10^3/uL (0.0-0.7); EOS % 1 % (0-3); HEMOGLOBIN 12.6 g/dL (13.0-17.5); LYMPH % 11 % (24-48); MEAN CORPUSCULAR HEMOGLOBIN 33 pg (25-35); MEAN CORPUSCULAR HGB CONC 34 g/dL (31-37); MEAN CORPUSCULAR VOLUME 95 fL (79-100); MONO % 11 % (0-9); NEUT # 6.5 x10^3uL (1.8-7.7); NEUT % 76 % (31-73); PLATELET COUNT 88 x10^3/uL (140-400); RED BLOOD COUNT 3.88 x10^6/uL (4.30-5.70); RED CELL DISTRIBUTION WIDTH 18.2 % (11.5-14.5); WHITE BLOOD COUNT 8.6 x10^3/uL (4.0-11.0)
[2017-11-10] MEDS: oxyCODONE IR 5 MG TABLET PO PRN ×4 (06:28→22:25)
[2017-11-10 06:32] LABS: CREATININE 0.7 mg/dL (0.7-1.3); GFR 114.3; POTASSIUM 3.4 mmol/L (3.5-5.1)
[2017-11-10] MEDS: INSULIN LISPRO 300 UNITS/3 ML INSULN.PEN. SQ SCH ×3 (08:00→18:16)
[2017-11-10] MEDS: MULTIVITAMIN with MINERAL TABLET. PO SCH (08:29)
[2017-11-10] MEDS: APIXABAN 2.5 MG TABLET PO SCH ×2 (08:29→21:36)
[2017-11-10] MEDS: FUROSEMIDE 40 MG/4 ML VIAL IVP SCH (08:30)
[2017-11-10] MEDS: rifAXIMin 550 MG TABLET PO SCH ×2 (08:30→21:36)
[2017-11-10] MEDS ORDERED: ELECTROLYTE (NON-ICU) PROTOCOL MC PRN (09:45)
[2017-11-10 11:25] VITALS: BP 95/58
[2017-11-10] MEDS: FUROSEMIDE INJ 100 MG in IV NORMAL SALINE 100ML 90 ML IV SCH (12:45)
[2017-11-10] MEDS ORDERED: POTASSIUM CHLORIDE 20 MEQ TABLET.ER. PO ONE (16:00)
[2017-11-10 16:26] VITALS: BP 100/62
[2017-11-10 19:46] VITALS: BP 97/59
--- NOTE | 2017-11-10 19:53 | PN ---
DATE: 11/10/2017 SUBJECTIVE: A 61-year-old male in with congestive heart failure as well as massive swelling to his legs with marked edema. The patient in turn has failed IV Lasix twice daily, so we will put him on a Lasix drip. The patient's potassium slightly low, we will correct that as well as need for pain medication adjustment. His blood pressure is a little bit on the low side of 99/63, respiratory rate 24, and pulse 98. We will make adjustments in some of his other medications as well. He needs to be monitored carefully on that as well. In any case, we will continue to monitor him accordingly and make further evaluation. OBJECTIVE: LUNGS: Still diminished primarily in the bases. CARDIOVASCULAR: Regular sinus rhythm. ABDOMEN: Soft, nontender. EXTREMITIES: With +3 to 4 pitting edema, still very full of fluid. We will go ahead and continue to monitor him gradually, diurese him as much as possible. Make further evaluation at that time. IMPRESSION: Acute on top of chronic diastolic heart failure, liver cancer with mets, severe peripheral edema. PLAN: As above. SARIKA GODOY MD DR: JOCELIN/vishal JOB#: [id number] / [id number]
[2017-11-10] MEDS: ARIPiprazole 10 MG TABLET PO SCH (21:36)
[2017-11-10] MEDS: ALPRAZolam 0.5 MG TABLET PO PRN (22:25)
[2017-11-10 22:27] VITALS: BP 92/57
[2017-11-11] MEDS: IPRATRPIUM/ALBUTEROL 0.5/2.5MG 3 ML NEBU. NEB SCH ×2 (04:58→19:51)
[2017-11-11 05:07] VITALS: BP 96/64
[2017-11-11] MEDS: FUROSEMIDE INJ 100 MG in IV NORMAL SALINE 100ML 90 ML IV SCH (05:09)
[2017-11-11] MEDS: oxyCODONE IR 5 MG TABLET PO PRN ×4 (05:34→20:43)
[2017-11-11 07:03] LABS: BASO # 0.1 x10^3/uL (0.0-0.2); BASO % 1 % (0-3); EOS # 0.1 x10^3/uL (0.0-0.7); EOS % 1 % (0-3); HEMATOCRIT 36.3 % (39.0-53.0); HEMOGLOBIN 12.5 g/dL (13.0-17.5); LYMPH # 0.7 x10^3/uL (1.0-4.8); LYMPH % 7 % (24-48); MEAN CORPUSCULAR HEMOGLOBIN 33 pg (25-35); MEAN CORPUSCULAR HGB CONC 34 g/dL (31-37); MEAN CORPUSCULAR VOLUME 95 fL (79-100); MONO # 1.1 x10^3/uL (0.0-1.1); MONO % 11 % (0-9); NEUT # 7.9 x10^3uL (1.8-7.7); NEUT % 80 % (31-73); PLATELET COUNT 86 x10^3/uL (140-400); RED BLOOD COUNT 3.82 x10^6/uL (4.30-5.70); RED CELL DISTRIBUTION WIDTH 18.5 % (11.5-14.5); WHITE BLOOD COUNT 9.9 x10^3/uL (4.0-11.0)
[2017-11-11 07:08] LABS: CALCIUM 7.9 mg/dL (8.5-10.1); CREATININE 0.7 mg/dL (0.7-1.3); GFR 114.3; POTASSIUM 3.2 mmol/L (3.5-5.1)
[2017-11-11] MEDS ORDERED: POTASSIUM CHLORIDE 20 MEQ TABLET.ER. PO ONE (07:45)
[2017-11-11] MEDS: INSULIN LISPRO 300 UNITS/3 ML INSULN.PEN. SQ SCH ×4 (08:00→20:47)
[2017-11-11] MEDS: rifAXIMin 550 MG TABLET PO SCH ×2 (08:04→20:42)
[2017-11-11] MEDS: APIXABAN 2.5 MG TABLET PO SCH ×2 (08:04→20:43)
[2017-11-11] MEDS: MULTIVITAMIN with MINERAL TABLET. PO SCH (08:04)
[2017-11-11] MEDS ORDERED: ELECTROLYTE (NON-ICU) PROTOCOL MC PRN (09:00)
[2017-11-11] MEDS: metOLazone 5 MG TABLET PO SCH (09:00)
[2017-11-11 11:38] VITALS: BP 94/65
[2017-11-11 15:16] VITALS: BP 96/57
[2017-11-11] MEDS ORDERED: CYCLOBENZAPRINE 10 MG TABLET. PO PRN (15:30)
[2017-11-11] MEDS: DOCUSATE SODIUM 100 MG CAPSULE PO SCH ×2 (15:38→20:50)
[2017-11-11] MEDS ORDERED: MAGNESIUM SULFATE 2GM 50 ML IV ONE (17:00)
[2017-11-11] MEDS: MAGNESIUM SULFATE 1GM 100 ML IV SCH ×2 (17:15→18:14)
[2017-11-11 19:29] VITALS: BP 95/59
[2017-11-11] MEDS: ARIPiprazole 10 MG TABLET PO SCH (20:43)
[2017-11-11] MEDS: ALPRAZolam 0.5 MG TABLET PO PRN (20:43)
[2017-11-11 22:11] VITALS: BP 93/56
[2017-11-12] MEDS: FUROSEMIDE INJ 100 MG in IV NORMAL SALINE 100ML 90 ML IV SCH (00:31)
[2017-11-12] MEDS: IPRATRPIUM/ALBUTEROL 0.5/2.5MG 3 ML NEBU. NEB SCH ×2 (05:19→12:04)
[2017-11-12 05:38] VITALS: BP 95/56
[2017-11-12] MEDS: oxyCODONE IR 5 MG TABLET PO PRN ×3 (06:24→15:02)
[2017-11-12 06:37] LABS: BASO # 0.1 x10^3/uL (0.0-0.2); BASO % 1 % (0-3); EOS # 0.2 x10^3/uL (0.0-0.7); EOS % 1 % (0-3); HEMATOCRIT 33.8 % (39.0-53.0); HEMOGLOBIN 11.5 g/dL (13.0-17.5); LYMPH # 1.1 x10^3/uL (1.0-4.8); LYMPH % 10 % (24-48); MEAN CORPUSCULAR HEMOGLOBIN 33 pg (25-35); MEAN CORPUSCULAR HGB CONC 34 g/dL (31-37); MEAN CORPUSCULAR VOLUME 95 fL (79-100); MONO # 1.7 x10^3/uL (0.0-1.1); MONO % 16 % (0-9); NEUT # 7.9 x10^3uL (1.8-7.7); NEUT % 72 % (31-73); PLATELET COUNT 82 x10^3/uL (140-400); RED BLOOD COUNT 3.54 x10^6/uL (4.30-5.70); RED CELL DISTRIBUTION WIDTH 18.4 % (11.5-14.5); WHITE BLOOD COUNT 10.9 x10^3/uL (4.0-11.0)
[2017-11-12 06:41] LABS: CALCIUM 7.6 mg/dL (8.5-10.1); CREATININE 0.8 mg/dL (0.7-1.3); POTASSIUM 3.1 mmol/L (3.5-5.1)
[2017-11-12 08:42] VITALS: BP 84/51
[2017-11-12] MEDS: DOCUSATE SODIUM 100 MG CAPSULE PO SCH (08:47)
[2017-11-12] MEDS: APIXABAN 2.5 MG TABLET PO SCH (08:48)
[2017-11-12] MEDS: rifAXIMin 550 MG TABLET PO SCH (08:49)
[2017-11-12] MEDS: MULTIVITAMIN with MINERAL TABLET. PO SCH (08:49)
[2017-11-12] MEDS: metOLazone 5 MG TABLET PO SCH (08:50)
[2017-11-12 10:36] VITALS: BP 97/62
[2017-11-12] MEDS ORDERED: METO5TAB4 PO (14:22)
[2017-11-12] MEDS ORDERED: CYCL-331 PO (14:22)
[2017-11-12] MEDS ORDERED: DOCU-109 PO (14:22)
== END 2017-11-12 15:15 | disposition home or self-care (01) | DRG 291 ==
LOC: 1 SOUTH 15:28
PROVIDERS: ADMIT Family Medicine; ATTEND Family Medicine
DX: I50.33 Acute on chronic diastolic (congestive) heart failure (principal); E43 Unspecified severe protein-calorie malnutrition; C22.9 Malignant neoplasm of liver, not specified as primary or secondary; E87.1 Hypo-osmolality and hyponatremia; B19.20 Unspecified viral hepatitis C without hepatic coma; D69.6 Thrombocytopenia, unspecified; E83.51 Hypocalcemia; E11.65 Type 2 diabetes mellitus with hyperglycemia; Z85.05 Personal history of malignant neoplasm of liver; J44.9 Chronic obstructive pulmonary disease, unspecified; N40.0 Benign prostatic hyperplasia without lower urinary tract symptoms; F10.11 Alcohol abuse, in remission; K74.60 Unspecified cirrhosis of liver; F20.9 Schizophrenia, unspecified; M19.90 Unspecified osteoarthritis, unspecified site; Z79.899 Other long term (current) drug therapy; Z87.891 Personal history of nicotine dependence; Z81.8 Family history of other mental and behavioral disorders; Z80.0 Family history of malignant neoplasm of digestive organs; Z79.4 Long term (current) use of insulin
CPT/HCPCS: 36415; 71046; 71275; 80048; 80053; 81001; 82140; 82550; 82947; 83735; 84484; 85025; 85379; 87086; 93005; 94640; J1815; J1940; J3475; J7620; P9041; 97110; 97530